=== PATIENT | female | born 1995 | race Caucasian/White ===

== ENCOUNTER 2017-04-18 07:42 | Emergency (ER) | payer BC ==
[~2017-04-18] VITALS: Ht 160 cm; Wt 59.3 kg
[2017-04-18] MEDS ORDERED: ESCITALOPRAM OX20 MG PO (07:58)
[2017-04-18 08:54] LABS: HEMATOCRIT 37.4 % (36.0-46.0); HEMOGLOBIN 12.7 G/DL (11.9-15.5); MCH 31.6 PG (29.0-34.0); PLATELET COUNT 148 K/uL (156-360); RBC DIS.WIDTH-CV 12.4 % (11.8-14.6); RED BLOOD COUNT 4.02 M/uL (3.80-5.20); WHITE BLOOD COUNT 4.9 K/uL (4.1-10.2)
[2017-04-18 09:05] LABS: CHLORIDE 108 mEq/L (99-109); POTASSIUM 3.8 mEq/L (3.7-5.4); SODIUM 139 mEq/L (136-147)
[2017-04-18 09:06] LABS: GLUCOSE 86 mg/dL (70-99)
[2017-04-18 09:10] LABS: CREATININE 0.7 mg/dL (0.6-1.3); GFR ESTIMATE (CALCULATED) > 59 mL/min/
[2017-04-18 09:11] LABS: UREA NITROGEN (BUN) 8 mg/dL (9-23)
[2017-04-18] MEDS ORDERED: COMPAZINE10 MG PO (09:49)
[2017-04-18 10:18] VITALS: BP 101/67
== END 2017-04-18 10:19 | disposition home or self-care (01) ==
LOC: EME 07:42
PROVIDERS: Emergency Medicine Emergency Medical Services
DX: R51 Headache (principal); R11.0 Nausea; H53.149 Visual discomfort, unspecified
CPT/HCPCS: 80048; 85027; 99281; 99285; J0780; J7030